=== PATIENT | female | born 1965 | race Caucasian/White ===

== ENCOUNTER 2017-04-12 09:30 | Day surgery (SDC) | payer BC, OTHER ==
[2017-04-12] MEDS ORDERED: DIAZEPAM 5 MG TAB PO ONE (09:32)
[2017-04-12] MEDS ORDERED: diphenhydrAMINE 25 MG CAP PO ONE ×2 (09:32→10:06)
[2017-04-12] MEDS ORDERED: ASPIRIN EC 325 MG TAB PO ONE ×2 (09:32→10:06)
[2017-04-12] MEDS ORDERED: FAMOTIDINE 20 MG TAB PO ONE (09:32)
[2017-04-12] MEDS ORDERED: NS 1,000 ML IV ONE (09:32)
--- NOTE | 2017-04-12 09:52 | CPEKG ---
Heart Rate: 72 RR Interval: 833 P-R Interval: 172 QRSD Interval: 102 QT Interval: 412 QTC Interval: 451 P Stanton: 20 QRS Stanton: -34 T Wave Stanton: 11 EKG Severity - ABNORMAL ECG - EKG Impression: SINUS RHYTHM EKG Impression: PROBABLE LEFT ATRIAL ABNORMALITY EKG Impression: LEFT AXIS DEVIATION EKG Impression: LEFT VENTRICULAR HYPERTROPHY Electronically Signed By: Robert Berg 12-Apr-2017 12:49:08
[2017-04-12] MEDS ORDERED: FAMOTIDINE 20 MG TAB ONE (10:06)
[2017-04-12] MEDS ORDERED: DIAZEPAM 5 MG TAB ONE (10:07)
[2017-04-12 10:10] LABS: % IMMATURE GRANULYOCYTES 0.3 % (0.0-1.1); ABSOLUTE IMMATURE GRANULOCYTES 0.02 10^3/uL (0.00-0.10); ADD DIFF? NO; ADD MORPH? NO; ADD SCAN? NO; ATYPICAL LYMPHOCYTE FLAG 10 (0-99); FRAGMENT RBC FLAG 0 (0-99); HEMATOCRIT 43.5 % (38.0-47.0); HEMOGLOBIN 14.9 g/dL (12.6-16.3); LEFT SHIFT FLG 0 (0-99); LIPEMIA HEMOLYSIS FLAG 90 (0-99); MEAN CELL HEMOGLOBIN 31.2 pg (27.9-34.1); MEAN CELL HEMOGLOBIN CONCENTR. 34.3 g/dL (32.4-36.7); MEAN CELL VOLUME 91.2 fL (81.5-99.8); MEAN PLATELET VOLUME 10.5 fL (8.7-11.7); PLATELET CLUMPS FLAG 0 (0-99); PLATELET COUNT 166 10^3/uL (150-400); RED BLOOD CELL COUNT 4.77 10^6/uL (4.18-5.33); RED CELL DISTRIBUTION WIDTH 12.5 % (11.5-15.2)
[2017-04-12 10:27] LABS: ANION GAP 13 mEq/L (8-16); CALCIUM 9.2 mg/dL (8.5-10.4); CARBON DIOXIDE 23 mEq/l (22-31); CHLORIDE 107 mEq/L (97-110); CHOLESTEROL 193 mg/dL (140-220); CREATININE 0.5 mg/dL (0.6-1.0); GLOMERULAR FILTRATION RATE > 60; GLUCOSE 92 mg/dL (70-100); HIGH DENSITY LIPOPROTEIN 42 mg/dL (40-85); LOW DENSITY LIPOPROTEIN 126 mg/dL (80-100); MAGNESIUM 2.1 mg/dL (1.6-2.3); NON-HIGH DENSITY LIPOPROTEIN 151 mg/dL (90-129); POTASSIUM 3.7 mEq/L (3.5-5.2); SODIUM 143 mEq/L (134-144); TRIGLYCERIDE 128 mg/dL (35-135); VERY LOW DENSITY LIPOPROTEINS 25 mg/dL (8-25)
[2017-04-12 10:28] LABS: PROTIME(PATIENT) 13.1 SEC (12.0-15.0)
--- NOTE | 2017-04-12 11:16 | PDDXCAT ---
Diagnostic Cath Note - . Date: 04/12/17 Roll Forger: Benjamin Intervention: none *Procedure 1. selective coronary angiography 2. left heart catheterization Indication: CCS Class II symptoms and a high risk stress test, NYHA class II heart failure Access: left radial *Materials Left Heart Cath size: 5F Left Heart Cath Materials: JL3.5, JR4.0, pigtail *Findings- selective coronary angiography LM: The Left Main is ~ mm in size LAD: The LAD is ~2.5 mm in size and there is no evidence of flow-limiting disease. LCX: The LCX is ~2.5 mm in size and there is no evidence of flow-limiting disease. DANO III flow is present throughout. RCA: The RCA is ~3.5 mm in size and it is dominant. There is DANO III flow throughout and no evidence of flow-limiting obstruction. *Findings- left heart catheterization LVEDP: 24 mmHg AO: 158/87/90 mmHg LVEF: 60% LVG: No MR or wall motion abnormalities noted on the LVG. *Summary: Assessment/Conclusion: 1. No CAD found on the basis of this study. 2. The patient should be 3. Complications: Estimated Blood Loss: <50 ml Closure Method:
[2017-04-12] MEDS ORDERED: LIDOCAINE 1% 300 MG/30 ML SDV ONE (12:08)
[2017-04-12] MEDS ORDERED: MIDAZOLAM 2 MG/2 ML VIAL ONE (12:08)
[2017-04-12] MEDS ORDERED: VERAPAMIL 5 MG/2 ML VIAL ONE ×2 (12:08→12:46)
[2017-04-12] MEDS ORDERED: HEPARIN 10,000 UNIT/10 ML MDV ONE (12:08)
[2017-04-12] MEDS ORDERED: fentaNYL 100 MCG/2 ML INJ ONE (12:08)
[2017-04-12] MEDS ORDERED: IOPAMIDOL (ISOVUE-370) 150 ML BTL IV ONE (12:09)
[2017-04-12] MEDS ORDERED: ETOMIDATE 40 MG/20 ML INJ ONE ×2 (12:36→12:44)
--- NOTE | 2017-04-13 08:31 | CPIP ---
[f rep st] INVASIVE CARDIAC PROCEDURE DATE OF PROCEDURE: 04/12/2017 PROCEDURE PERFORMED: 1. Selective coronary angiography. 2. Left heart catheterization. 3. Left ventriculogram. 4. TR band arteriotomy repair. This was a left radial approach. COMPLICATIONS: None. BIOLOGY RESEARCH ASSISTANT: Himanshu Alexander MD. INDICATION FOR THE PROCEDURE: The patient has an abnormal nuclear stress test suggestive of a zone of ischemia which is greater than 20% of her myocardium. She has CCS class 2 symptoms of an anginal equivalent, which would be shortness of breath with minimal to moderate exertion. Because of these findings, cardiac catheterization was recommended. PROCEDURE IN DETAIL: After informed consent was obtained, n.p.o. status was confirmed, the region o f the left wrist was cleaned, prepped, and draped in a sterile fashion. Approximately 5 cc of 1% li docaine were utilized for local anesthesia. A modified and plethysmography trace assist Juan test was performed, documenting dual arterial supply to the left index finger prior to the procedure. A 5-Micronesian sheath was placed to the left radial artery without difficulty. The patient then underwent the previously mentioned diagnostic procedures with the use of a JL4, JR4, and a 5-Micronesian pigtail c atheter. Standard wire exchange technique was utilized for all catheter exchanges. There was a fairly sharp angulation of the left radial artery where it joined the left brachial mirlande ry and therefore a left radial approach would not be recommended in this patient again because of di fficulty in navigating the junction between the left radial artery and left radial artery with wires and catheters. The patient underwent left ventriculogram, left heart catheterization demonstrating elevated left ve ntricular end-diastolic pressure measured at 17 mmHg. The patient underwent left ventriculogram in the HARTMAN projection, demonstrating preserved left ventricular systolic function. Ejection fraction i s 65%. No resting segmental wall motion abnormalities were identified. There were 3 sinuses of Anna adolfo most consistent with a trileaflet aortic valve. There was no evidence of familia dissection or aneurysm of the proximal thoracic aorta. There was no evidence of a gradient upon pullback across t he aortic valve and outflow tract indicating no significant obstructive cardiomyopathy or evidence o f aortic stenosis. The right coronary artery is dominant giving rise to posterior descending and posterolateral ventric ular branches, approximately 3 mm in size and quite large with a good myocardial blush on lateral im aging. No flow-limiting obstruction, dissection or thrombus is identified. The left main coronary lumen is approximately 6 mm in size and trifurcates into an LAD, ramus, and c ircumflex system. The LAD is approximately 2.25 mm in size. It gives rise to appropriate diagonal and septal branches, is relatively small and short in its course and barely reaches the apex. The r amus intermedius vessel is 2 mm in size and has DANO-3 flow. The left circumflex vessel is 2.5 mm i n size proximally and has DANO-3 flow. There was no evidence of dissection or thrombus. SUMMARY OF FINDINGS: Normal left ventricular chamber size with preserved left ventricular systolic function. Ejection fraction is 65%. Elevated left ventricular end-diastolic pressure is present. There is a right dominant coronary system with a relatively smaller left coronary system than right, which may, especially in the case of the LAD, result in a differential in perfusion deficit, which may cause a spurious suggestion of decreased blood flow to the anterior wall. The patient has a fa irly large amount of breast tissue, which may make a shifting breast attenuation artifact a very pietro l possibility in regard to nuclear testing and therefore may increase the risk of a false positive t est, as seems to have occurred in this case. General recommendations for weight loss to achieve an ideal body weight, as well as ongoing management of other issues including her blood pressure and ch olesterol, should be entertained by her primary care endless bed drum sander and physician. /[id number]/MODL
== END 2017-04-12 17:25 | disposition home or self-care (01) ==
LOC: FCATH 09:30
PROVIDERS: ATTEND Internal Medicine Cardiovascular Disease
PROC: 4A023N7 Measurement of Cardiac Sampling and Pressure, Left Heart, Percutaneous Approach (ICD-10-PCS; principal; 2017-04-12)
PROC: B2111ZZ Fluoroscopy of Multiple Coronary Arteries using Low Osmolar Contrast (ICD-10-PCS; principal; 2017-04-12)
PROC: B2151ZZ Fluoroscopy of Left Heart using Low Osmolar Contrast (ICD-10-PCS; principal; 2017-04-12)
DX: R94.39 Abnormal result of other cardiovascular function study (principal); I48.91 Unspecified atrial fibrillation
CPT/HCPCS: 93005; 93458; C1769; J1644; J2250; J3010; Q9967

== ENCOUNTER → 2017-07-23 | Outpatient (CLI) | payer OTHER | LOC: CIMAGING 07:39 | PROVIDERS: ATTEND Obstetrics & Gynecology | DX: Z12.31 Encounter for screening mammogram for malignant neoplasm of breast (principal) | CPT/HCPCS: G0202 ==

== ENCOUNTER → 2017-08-24 | Outpatient (CLI) | payer OTHER | LOC: CIMAGING 13:11 | PROVIDERS: ATTEND Family Medicine | DX: N60.02 Solitary cyst of left breast (principal) | CPT/HCPCS: 76641-PO; G0206 ==

== ENCOUNTER → 2018-10-22 | Outpatient (CLI) | payer OTHER | LOC: CIMAGING 08:19 | PROVIDERS: ATTEND Family Medicine | DX: Z12.31 Encounter for screening mammogram for malignant neoplasm of breast (principal) ==